=== PATIENT | male | born 1985 | race Caucasian/White ===

== ENCOUNTER 2018-03-26 15:19 | Emergency (ER) | payer OTHER, SELFPAY ==
[2018-03-26 15:28] VITALS: BP 120/70; PULSE 65; RESP 16; TEMP 36.8; O2SAT 97
--- NOTE | 2018-03-26 16:09 | ED.GENADUL_ITS ---
Discharge Plan Disposition Patient Disposition: HOME Condition: Fair Discharge Details Chief Complaint: Laceration Clinical Impression: Finger laceration Primary Care Provider: RED BRISENO ED Provider: Jessica Richardson Home Meds and New Rx's Prescriptions: Continued sertraline 50 MG tablet 50 mg PO DAILY RF: 0 Discharge Instructions Instructions: Finger Laceration (ED) Additional Instructions: Keep current dressing on for the next 24 hours. After that, please keep wound clean, dry, covered. You may want to do any water and soap but please do not soak. Monitor for signs of infection including redness or warmth, drainage, fever/chills. If these arise please seek care urgently once again. Otherwise, please follow-up in 1 week for suture removal Referrals: RED BRISENO [Primary Care Provider] - Discharge Data Discharge Date/Time-TO BE ENTERED AT DEPARTURE: 03/26/18 17:09 Medical Decision Making Dawna is a 32 year old RHD male presenting today with 1cm laceration to the distal tip of the left thumb. Cut himself while widdling wood. Denies numbness/tingling. Denies othe rinjury at the time of the incident. Patient reports that tetanus is in the last 5 years. Two-point discrimination is intact. Patient I discussed closure techniques in depth. Discussed risk/benefits of suture closure and expect procedural steps. He was understanding and wished to proceed Procedure note: Sterile technique, 1% lidocaine plain was used to perform a digital block. 6 cc was infiltrated. The sufficiently anesthetized the digit. Wound is then copiously irrigated with sterile saline. Wound was explored to base in bloodless field no foreign body or debris was noted. Attention was then turned to closure. #3 simple interrupted sutures using 6-0 nylon was placed. Patient tolerated procedure well and a dry sterile bulky dressing was placed Patient I discussed wound care in depth. He will keep current dressing over the next 24 hours. After that time we will keep a clean, dry and covered. Advised signs and symptoms of infection when to seek care urgently once again. He will return in 7 days for suture removal. We discussed activities that he should avoid. All of his questions and concerns were addressed, she is in agreement with this plan. HPI General Mode of arrival: ambulatory . Date/Time Provider Initiated Documentation: 03/26/18 15:22 . Limitations to Documentation: no limitations . Information obtained by: patient . History of Present Illness 32 year old M presents to the emergency department with the chief complaint of laceration left thumb, described as mild, Quality is described as aching, and is localized to the left and upper extremity. Patient reports no radiation. Patient started experiencing this minute(s) and it has been constant. No relieving factors improve symptom(s), No exacerbating factors reported . Patient notes denies fever/chills and rash. Patient did receive the following treatments prior to arrival, none Related Data Home Medications Medication Instructions Recorded Confirmed sertraline 50 mg PO DAILY 03/26/16 03/26/18 Allergies Allergy/AdvReac Type Severity Reaction Status Date / Time No Known Allergies Allergy Unverified 03/26/18 15:48 General Stated Complaint: Laceration MAGAN: 4 Review of Systems Constitutional Reports as per HPI, Denies chills and Denies fever(s) Musculoskeletal Reports as per HPI Integumentary/Breasts Reports as per HPI Neurologic Reports as per HPI, Denies sensory deficit and Denies paresthesias [facility] Social History Smoking/Tobacco Use Status: Never Exam Const General: cooperative, healthy appearing, comfortable, no acute distress and well developed Nutritional Appearance: average body habitus and well nourished Orientation: alert and awake Resp Effort & Inspection: normal respiratory effort, able to speak in complete sentences and no respiratory distress Cardio Rate: regular rate Rhythm: regular rhythm Skin Trauma: laceration Neuro General: alert and awake Cognition: normal cognition Speech: speech normal Gait: normal gait Sensory Exam: no sensory deficits noted Extrem Left upper extremity: full ROM, normal capillary refill, no joint enlargement and hand Details: normal capillary refill, neuromotor exam normal, tendon exam normal, normal ROM of fingers, no swelling and laceration (into subcutaneous tissue, not actively bleeding); no unusual warmth and no swelling; abnormal to inspection (patient has a 1cm laceration across tip of the digit on the ulnar s daryl) Psych Appearance: grossly normal and well kempt Mental Status: mental status grossly normal Speech and Movement: speech and movement normal Course Vital Signs Temperature 36.8 C 03/26/18 15:28 Pulse 65 03/26/18 15:28 Respiratory Rate 16 03/26/18 15:28 Blood Pressure 120/70 03/26/18 15:28 Pulse Oximetry 97 01/01/19 15:28 Temperature 36.8 C 03/26/18 15:28 Temperature Source Skin 03/26/18 15:28 Pulse 65 03/26/18 15:28 Respiratory Rate 16 03/26/18 15:28 Respiratory Effort 03/26/18 15:44 Blood Pressure 120/70 03/26/18 15:28 Blood Pressure Position Sitting 03/26/18 15:28 Pulse Oximetry 97 03/26/18 15:28 Oxygen Delivery Method Room Air 03/26/18 15:28 Oxygen Flow Rate 0 03/26/18 15:28 Pain Level 0 03/26/18 15:28
[2018-03-26 17:09] VITALS: PULSE 69; RESP 14; TEMP 36.5; O2SAT 97
== END 2018-03-26 17:09 | disposition home or self-care (01) ==
PROVIDERS: Emergency Provider Physician Assistant; PCP Family Medicine
DX: S61.012A Laceration without foreign body of left thumb without damage to nail, initial encounter (principal); W26.0XXA Contact with knife, initial encounter
CPT/HCPCS: 12001

== ENCOUNTER 2018-05-23 16:59 | Outpatient (REF) | payer OTHER, SELFPAY ==
[2018-05-23 21:28] LABS: Abs Immature Grans 0.01 k/cumm (0.0-0.09); Absolute Basophil Count 0.02 k/cumm (0.0-0.2); Absolute Eosinophil Count 0.14 k/cumm (0.0-0.7); Absolute Monocyte Count 0.44 k/cumm (0.11-0.7); Absolute Neutrophil Count 3.41 k/cumm (1.2-6.7); Basophils % 0.3; Eosinophils % 2.4; HCT 40.3 % (40.0-50.0); HGB 14.3 g/dL (13.5-17.5); Immature Grans % 0.2; Lymphocytes % 32.1; Mean Corp. HGB Concentration 35.5 g/dL (32.0-36.0); Mean Corpuscular Hemoglobin 30.6 pg (27.0-33.0); Mean Corpuscular Volume 86.1 fL (80-95); Mean Platelet Volume 10.2 fL (8.0-11.0); Monocytes % 7.4; Neutrophils % 57.6; Platelet Count 183 x1000/uL (130-400); RBC 4.68 m/cumm (4.50-6.00); RBC Distribution Width 12.7 % (11.8-14.1); White Blood Cell Count 5.92 k/cumm (4.4-10.8)
[2018-05-23 21:38] LABS: BUN 17 mg/dL (7-18); CREATININE 1.22 mg/dL (0.70-1.30); Calcium 9.5 mg/dL (8.5-10.1); Chloride 102 mmol/L (98-107); Cholesterol 160 mg/dL (50-200); Glucose 89 mg/dL (70-100); HDL Cholesterol 33 mg/dL (40-60); LDL CHOLESTEROL 93 mg/dL (<100); Sodium 139 mmol/L (136-145); Triglyceride 147 mg/dL (30-150)
== END 2018-05-23 17:19 ==
LOC: NCHCN 16:59
PROVIDERS: PCP Family Medicine; Visit Provider Nurse Practitioner Family
DX: K92.1 Melena (principal); Z00.00 Encounter for general adult medical examination without abnormal findings; Z13.220 Encounter for screening for lipoid disorders
CPT/HCPCS: 80048; 80061; 83721; 85025

== ENCOUNTER 2022-04-13 15:36 | Outpatient (REF) | payer OTHER, SELFPAY ==
[2022-04-13 21:36] LABS: ALT 20 U/L (16-63); AST 20 U/L (15-37); Albumin 4.7 g/dL (3.4-5.0); Alkaline Phosphatase 73 U/L (46-116); Anion Gap 8.1 mmol/L (3-11); BUN 14 mg/dL (7-18); Bilirubin, Total 0.3 mg/dL (0.2-1.0); CO2 27.9 mmol/L (21.0-32.0); CREATININE 1.1 mg/dL (0.70-1.30); Calculated LDL 70 mg/dL (<100); Chloride 103 mmol/L (98-107); Cholesterol 144 mg/dL (<200); Estimated GFR 89.22 (mL/min/1.73m2); Glucose 107 mg/dL (74-106); HDL Cholesterol 37 mg/dL (40-60); Potassium 4.1 mmol/L (3.5-5.1); Sodium 139 mmol/L (136-145); Total Protein 7.4 g/dL (6.4-8.2); Triglyceride 189 mg/dL (<150)
== END 2022-04-13 15:37 | disposition home or self-care (01) ==
LOC: NCHCN 15:36
PROVIDERS: PCP Family Medicine; Visit Provider Nurse Practitioner Family
DX: Z00.00 Encounter for general adult medical examination without abnormal findings (principal); Z13.220 Encounter for screening for lipoid disorders; Z13.228 Encounter for screening for other metabolic disorders
CPT/HCPCS: 80053; 80061

== ENCOUNTER 2023-04-05 19:30 | Outpatient (REF) | payer OTHER, SELFPAY ==
[2023-04-05 21:54] LABS: Anion Gap 6.1 mmol/L (3-11); BUN 15 mg/dL (7-18); CO2 26.9 mmol/L (21.0-32.0); CREATININE 1.4 mg/dL (0.70-1.30); Calcium 9.9 mg/dL (8.5-10.1); Chloride 104 mmol/L (98-107); Estimated GFR 66.39 (mL/min/1.73m2); Glucose 102 mg/dL (74-106); Sodium 137 mmol/L (136-145)
== END 2023-04-05 19:31 | disposition home or self-care (01) ==
LOC: NCHCN 19:30
PROVIDERS: PCP Family Medicine; Visit Provider Family Medicine
DX: I10 Essential (primary) hypertension (principal)
CPT/HCPCS: 80048